=== PATIENT | female | born 1995 | race Caucasian/White ===

== ENCOUNTER 2016-12-10 09:05 | Emergency (ER) | payer OTHER ==
[~2016-12-10] VITALS: Ht 170.2 cm; Wt 48.2 kg
[~2016-12-10 09:05] MED LIST: ONDA4TAB12 PO; ONDA4TAB9 PO; OXYC5SOL11 PO; PREN1TAB73 PO; PROC25SU30 RC
[2016-12-10 09:20] VITALS: BP 155/107; PULSE 114; RESP 16; O2SAT 99
--- NOTE | 2016-12-10 11:20 | ED.REPORT ---
HPI-URI / Cough / Cold Date of Service Dec 10, 2016 ED Provider: Ganesh Benavides PA-C Marisol is a 21-year-old female with a history of SMA syndrome who presents with a chief complaint of cough. Patient reports a one-month history of cough and sore throat. She states that the cough was initially productive but is now dry. Additionally complains of dyspnea, wheezing, anorexia, fatigue, chills, sweats, nausea and 2 episodes of vomiting. Patient reports burning epigastric abdominal pain that is familiar to her and at baseline. Denies fever, diarrhea , substernal chest pain, palpitations. Admits a history of spontaneous pneumothorax with surgery 5 months ago. Patient has a secondary complaint of lower back pain. She reports a history of fractured 3 vertebra approximately 13 months ago. She localizes pain to her lumbosacral region. Denies weakness, numbness/tingling, pain in extremities. Denies fever, recent infection, recent surgery in the last 3 months, back surgery or implant, DM, immunosuppression, IV drug use. Also denies bowel/ bladder dysfunction, saddle anesthesia. Nursing Notes Stated Complaint: SICK/BACK PAIN Chief Complaint: Back Pain or Injury Nursing Notes Reviewed: Yes Allergies: Coded Allergies: metoclopramide (Verified Allergy, Severe, 07/09/14) haloperidol (Verified Allergy, Unknown, 10/26/16) Scheduled Vit/Iron Fumarate/FA ( Vitamin Tablet) 1 Each Tablet 1 EACH PO DAILY Scheduled PRN Ondansetron ODT (Ondansetron ODT) 4 Mg Tab.rapdis 4 MG PO Q4 PRN PRN For Nausea/ Vomiting Ondansetron ODT (Zofran ODT) 4 Mg Tablet 4 MG PO Q4H PRN PRN For Nausea Prochlorperazine Maleate (Compazine Suppository) 25 Mg Supp.rect 25 MG RC Q8 PRN PRN For Nausea/Vomiting oxyCODONE (oxyCODONE) 5 Mg/5 Ml Solution 5 MG PO QID PRN PRN For Pain General Time Seen by MD: 11:00 Chief Complaint Cough, non-productive Past Medical History Past Medical History SMA syndrome, initially diagnosed in [facility] at [facility], age 14 Spontaneous pneumothorax Anxiety, depression Past Surgical History laparoscopic duodenojejunostomy Smoking History Former Smoker Social History Alcohol Use: Denies alcohol use Drug Use: THC Ambulatory Status Independent Review of Systems General: Admits chills, malaise, fatigue. Denies fever HEENT: Admits sore throat. Denies congestion, headache. Respiratory: Admits dyspnea, cough, shortness of breath, wheezing. Cardiovascular: Denies substernal chest pain, palpitations. Gastrointestinal: Admits nausea, vomiting, abdominal pain. Denies diarrhea Genitourinary: Denies frequency, urgency, dysuria, hematuria. Otherwise as noted in HPI. Complete sys rev & neg: except as marked. Physical Exam General: Well developed, very thin, no acute distress. Head: Atraumatic, normocephalic. No mastoid tenderness. Eyes: No scleral icterus or injection. No discharge. Vision grossly intact. Ears: Pinna and tragus nontender with manipulation. External auditory canal patent, atraumatic and without discharge. Tympanic membrane casillas, shiny and translucent without fluid, bulging, retraction or perforation. Hearing grossly intact. Nose: Symmetrical, nares patent without discharge. No frontal or maxillary sinus tenderness. Mouth/pharynx: Normal dentition, mucus membranes moist. Tonsils small casillas exudate, 2+ and symmetrical, uvula midline. Pharynx injected. Voice clear. No pooling secretions. Neck: Bilateral mildly tender lymphadenopathy. Trachea midline. Respiratory: Clinically evident cough. Regular rate and rhythm. Breath sounds present, clear to auscultation and equal bilaterally. Cardiovascular: Regular rate and rhythm, without murmur, gallop or rub. No pedal edema. Gastrointestinal: Abdomen flat and non-tender without guarding or rebound. Bowel sounds normoactive. Skin: Warm and dry. Back: Slight swelling over sacrum without redness or heat. Mild tenderness over sacrum and SI joints. Neurological: Grossly nonfocal. Psychological: alert and oriented. Speech appropriate, linear and logical. Behavior appropriate. Initial Vital Signs Vital Signs (First) Date Time Temp Pulse Resp B/P Pulse Ox O2 Delivery O2 Flow Rate FiO2 12/10/16 09:20 36.2 114 16 155/107 99 Room Air Initial VS: Reviewed Interpretation & Diagnostics Lab Results Interpretation Result Diagram: 12/10/16 1235 12/10/16 1235 Test 12/10/16 12:25 12/10/16 12:35 Hold Urine Received (Received) White Blood Count 15.7th/mm3 (3.8-10.1) Red Blood Count 4.70mil/mm3 (3.90-5.20) Hemoglobin 13.6g/dL (12.0-15.6) Hematocrit 40.3% (35.0-46.0) Mean Corpuscular Volume 85.7fL (81-100) Mean Corpuscular Hemoglobin 28.9pg (27.0-35.0) Mean Corpuscular Hemoglobin Concent 33.7% (32.0-37.0) Red Cell Distribution Width 13.7% (12.3-15.4) Platelet Count 206bil/L (150-400) Neutrophils (%) (Auto) 77.8% (40-74) Lymphocytes (%) (Auto) 10.5% (14-46) Monocytes (%) (Auto) 10.3% (4-12) Eosinophils (%) (Auto) 0.9% (0-5) Basophils (%) (Auto) 0.2% (0-3) Sodium Level 137mEq/L (134-144) Potassium Level 3.4mEq/L (3.5-5.2) Chloride Level 98mEq/L (97-108) Carbon Dioxide Level 23mmol/L (18-29) Blood Urea Nitrogen 6mg/dL (6-20) Creatinine 0.41mg/dL (0.57-1.00) Estimat Glomerular Filtration Rate 278mL/min (>59) Glucose Level 94mg/dL (60-99) Calcium Level 9.1mg/dL (8.5-10.1) Total Bilirubin 0.6mg/dL (0.0-1.2) Aspartate Amino Transf (AST/SGOT) 12U/L (0-50) Alanine Aminotransferase (ALT/SGPT) 11U/L (0-32) Alkaline Phosphatase 74U/L (25-150) Total Protein 7.3g/dL (6.4-8.4) Albumin 4.0g/dL (3.4-5.0) Hold Jain Top Tube Received (Received) Monoscreen Negative (Negative) X-Ray Chest Interpretation Chest Xray Interpretation: PROCEDURE: X-RAY CHEST, TWO VIEWS ([id number]) INDICATIONS: cough IMPRESSION: No acute disease Interpretation / Wet Read by: Interpret - Radiologist, Interp - AHP Re-Eval/Medical Decision Med Decision/Clinical Course Discussed this case with Dr. Jarvis. Patient's 19 oh female with a history of SMA and lumbar fractures presents with chief complaint one month history of cough and sore throat. Admits fatigue. Denies fever. Physical exam reveals slight casillas tonsillar exudate, anterior lymphadenopathy. Monospot negative. CBC reveals leukocytosis. Chest x-ray normal. I believe this is a viral upper respiratory infection versus pneumonia , strep throat, tuberculosis. She has a secondary complaint of lumbosacral back pain that began about 2 days ago. She said when she woke up in the morning. For severe event. No red flag symptoms for epidural abscess or cauda equina syndrome. This is more likely to be musculoskeletal. Initial tachycardia resolved. 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 History, physical, x-rays are all quite reassuring that you do not have pneumonia. They are also reassuring that the pain that is unlikely to be caused by something dangerous such as infection or swelling in your spinal cord. The mono test was negative. I believe it is safe to discharge you to home. The pain is best treated with 400 mg of ibuprofen (Advil, Motrin) every 6 hours, or 1000 mg of acetaminophen (Tylenol) every 6 hours. These drugs can be taken at the same time for more severe pain. Rest, use your Zofran for the nausea and tried to eat and drink small amounts throughout the day. I provided a referral for primary care follow-up. Please contact them to arrange follow-up if your symptoms do not resolve in the next week. Return to the emergency department for any new or worsening symptoms including bowel/bladder dysfunction, numbness between your legs, difficulty breathing or shortness of breath. Referrals: [facility] EDSupervising Provider for APC: Yogesh Jarvis MD,Ganesh CARVAJAL Dec 10, 2016 11:20
--- NOTE | 2016-12-10 11:40 | DRSVH ---
PROCEDURE: X-RAY CHEST, TWO VIEWS ([id number]) INDICATIONS: cough TECHNIQUE: 2 views of the chest were acquired. COMPARISON: [facility], CR, XR CHEST 1VW (PORTABLE), 10/26/2016, 11:57. FINDINGS: Surgical changes and devices: None. Lungs and pleura: No pleural effusions or pneumothorax. Lungs are clear. Mediastinum: Mediastinal contours are normal. Heart size is normal. Bones and chest wall: No suspicious bony abnormalities. Soft tissues appear unremarkable. IMPRESSION: No acute disease Dictated by: Mich Burton M.D. on 12/10/2016 at 11:38 Approved by: Mich Burton M.D. on 12/10/2016 at 11:38
[2016-12-10 12:43] LABS: BASOPHILS % (AUTO) 0.2 % (0-3); EOSINOPHILS % (AUTO) 0.9 % (0-5); MONOCYTES % (AUTO) 10.3 % (4-12); Mean Corpuscular Hemoglobin 28.9 pg (27.0-35.0); Mean Corpuscular Volume 85.7 fL (81-100); NEUTROPHILS % (AUTO) 77.8 % (40-74); Platelet Count 206 bil/L (150-400)
[2016-12-10 13:54] VITALS: BP 158/113; PULSE 110; RESP 18; O2SAT 94
== END 2016-12-10 13:56 ==
LOC: SED 09:05
DX: R05 Cough (principal); M54.5 Low back pain; R06.00 Dyspnea, unspecified; R63.0 Anorexia; R53.83 Other fatigue; R68.83 Chills (without fever); R61 Generalized hyperhidrosis; R11.2 Nausea with vomiting, unspecified; R10.13 Epigastric pain; Z87.891 Personal history of nicotine dependence; Z88.8 Allergy status to other drugs, medicaments and biological substances

== ENCOUNTER 2017-01-23 15:08 | Emergency (ER) | payer OTHER ==
[~2017-01-23] VITALS: Ht 170.2 cm; Wt 48.6 kg
[2017-01-23 15:21] VITALS: BP 138/96; PULSE 70; RESP 24; O2SAT 99
== END 2017-01-23 15:40 | disposition left against medical advice (07) ==
LOC: SED 15:08
DX: R10.9 Unspecified abdominal pain (principal); Z53.21 Procedure and treatment not carried out due to patient leaving prior to being seen by health care provider

== ENCOUNTER 2017-01-23 19:42 | Emergency (ER) | payer OTHER ==
[2017-01-23 19:59] VITALS: BP 144/98; PULSE 55; O2SAT 100
--- NOTE | 2017-01-23 20:16 | ED.REPORT ---
HPI-Abd Pain F Under 40 Date of Service Jan 23, 2017 ED Provider: Pillo Lee Patient is a 21 year old female who presents to the ED complaining of upper abdominal pain onset 1400 this afternoon. Associated symptoms include nausea, vomiting, fever, chills, and diarrhea. She denies headache, lightheadedness, or any other symptoms. She reports that her symptoms are the same as her previous flare-ups. She smokes THC daily. Patient came to the department earlier this afternoon but left without being seen. Nursing Notes Stated Complaint: VOMITING Chief Complaint: Female Abdominal Pain Nursing Notes Reviewed: Yes Allergies: Coded Allergies: metoclopramide (Verified Allergy, Severe, 07/09/14) haloperidol (Verified Allergy, Unknown, 10/26/16) Scheduled Vit/Iron Fumarate/FA ( Vitamin Tablet) 1 Each Tablet 1 EACH PO DAILY Scheduled PRN Ondansetron ODT (Ondansetron ODT) 4 Mg Tab.rapdis 4 MG PO Q4 PRN PRN For Nausea/ Vomiting Ondansetron ODT (Zofran ODT) 4 Mg Tablet 4 MG PO Q4H PRN PRN For Nausea Prochlorperazine Maleate (Compazine Suppository) 25 Mg Supp.rect 25 MG RC Q8 PRN PRN For Nausea/Vomiting oxyCODONE (oxyCODONE) 5 Mg/5 Ml Solution 5 MG PO QID PRN PRN For Pain General Time Seen by MD: 20:16 Chief Complaint Abdominal pain Hx Obtained From: Patient Arrived By: Walk-in Sudden in Onset?: Yes Onset Occurred: 5 - 8 hours ago Symptom Duration: Since onset Similar Sx Previous: Yes Past Medical History Past Medical History SMA syndrome, initially diagnosed in [facility] at [facility], age 14 Spontaneous pneumothorax Anxiety, depression Past Surgical History laparoscopic duodenojejunostomy Lung surgery Smoking History Former Smoker Social History THC use daily Alcohol Use: Denies alcohol use Drug Use: THC Ambulatory Status Independent Review of Systems Constitutional: Reports: Chills, Fever GI: Reports: Abdominal pain, Diarrhea, Nausea, Vomiting Complete sys rev & neg: except as marked. Neurologic: Denies: Headache, Lightheaded Physical Exam Initial Vital Signs Vital Signs (First) Date Time Temp Pulse Resp B/P Pulse Ox O2 Delivery O2 Flow Rate FiO2 01/23/17 19:59 36.1 55 144/98 100 Room Air 01/23/17 23:36 16 Head / Eyes: Atraumatic, Normocephalic Skin: Warm, Dry Neurologic: Alert, Oriented, Nonfocal Psychiatric: Mood/affect normal, Behavior normal, Normal thought content General/Constitutional: Awake, Alert, Well developed Distress / Hydration: Positive: Distress mild Respiratory / Chest: No respiratory distress Cardiovascular: Heart rate NL, Regular rhythm Abdomen: Soft Tenderness/Guarding/Rebound: Positive: Tender LUQ..., Tender RUQ... Back: Inspection NL Interpretation & Diagnostics Lab Results Interpretation Result Diagram: 01/23/17203601/23/172036 Test 01/23/17 20:37 White Blood Count 16.4th/mm3 (3.8-10.1) Red Blood Count 4.88mil/mm3 (3.90-5.20) Hemoglobin 14.4g/dL (12.0-15.6) Hematocrit 41.5% (35.0-46.0) Mean Corpuscular Volume 85.0fL (81-100) Mean Corpuscular Hemoglobin 29.5pg (27.0-35.0) Mean Corpuscular Hemoglobin Concent 34.7% (32.0-37.0) Red Cell Distribution Width 13.5% (12.3-15.4) Platelet Count 248bil/L (150-400) Neutrophils (%) (Auto) 90.2% (40-74) Lymphocytes (%) (Auto) 5.6% (14-46) Monocytes (%) (Auto) 3.9% (4-12) Eosinophils (%) (Auto) 0% (0-5) Basophils (%) (Auto) 0.1% (0-3) Sodium Level 134mEq/L (134-144) Potassium Level 3.8mEq/L (3.5-5.2) Chloride Level 94mEq/L (97-108) Carbon Dioxide Level 19mmol/L (18-29) Blood Urea Nitrogen 10mg/dL (6-20) Creatinine 0.65mg/dL (0.57-1.00) Estimat Glomerular Filtration Rate 163mL/min (>59) Glucose Level 146mg/dL (60-99) Calcium Level 9.8mg/dL (8.5-10.1) Magnesium Level 1.7mg/dL (1.6-2.6) Total Bilirubin 0.7mg/dL (0.0-1.2) Aspartate Amino Transf (AST/SGOT) 25U/L (0-50) Alanine Aminotransferase (ALT/SGPT) 23U/L (0-32) Alkaline Phosphatase 66U/L (25-150) Total Protein 8.2g/dL (6.4-8.4) Albumin 4.9g/dL (3.4-5.0) Lipase 48U/L (13-60) Hold Jain Top Tube Received (Received) Re-Eval/Medical Decision Med Decision/Clinical Course Med Decision/Clinical Course: Known recurrent abdominal pain and vomiting, states this is similar to prior episodes declines advanced imaging. Pain resolved tolerating orals will be discharged. Re-Evaluation/Progress : Time of Eval: 21:55 Re-Evaluation/Progress Note: Rechecked patient. PO challenge completed. Discussed plan for discharge. Patient understands and agrees with plan. All questions addressed at this time. Counseled Regarding: Diagnosis, Need for follow-up, When/why to return to ED Discharge & Departure Primary Impression: Vomiting Disposition: Home Discharge Condition All VS Reviewed: Yes Condition: Improved Patient Instructions: Acute Nausea and Vomiting (ED) Additional Instructions: Thank you for entrusting us with your care. Take your Zofran as prescribed and follow up with your primary care physician if your nausea persists. Drink clear fluids and advance your diet as tolerated. Return to the emergency department if you develop new or worsening symptoms. Referrals: NOPCP (PCP) [facility] Scribe Attestation Portions of this note were transcribed by Luis Caputo. I, Dr. Lee personally performed the history, physical exam and medical decision-making; I reviewed and confirmed the accuracy of the information in the transcribed note. Signed by: Luis Caputo 01/23/2017, [id number] copies to: [facility] Pillo Lee DO Jan 23, 2017 20:16 LUIS CAPUTO Jan 23, 2017 20:36
[2017-01-23] MEDS ORDERED: 0.9% Sodium Chloride 1,000 ML IV ONE ×2 (20:30)
[2017-01-23] MEDS: HYDROmorphone 1 mg/mL Inj IVPUSH PRN ×2 (20:40→21:09)
[2017-01-23] MEDS: Ondansetron 2 mg/mL 2 mL Inj IVPUSH PRN ×2 (20:40→21:10)
[2017-01-23 20:57] LABS: BASOPHILS % (AUTO) 0.1 % (0-3); EOSINOPHILS % (AUTO) 0 % (0-5); MONOCYTES % (AUTO) 3.9 % (4-12); Mean Corpuscular Hemoglobin 29.5 pg (27.0-35.0); NEUTROPHILS % (AUTO) 90.2 % (40-74); Platelet Count 248 bil/L (150-400)
[2017-01-23 21:06] LABS: Magnesium 1.7 mg/dL (1.6-2.6)
[2017-01-23 23:36] VITALS: BP 130/76; PULSE 100; RESP 16; O2SAT 100
== END 2017-01-23 23:37 | disposition home or self-care (01) ==
LOC: SED 19:42
DX: R11.10 Vomiting, unspecified (principal); R10.11 Right upper quadrant pain; R10.12 Left upper quadrant pain; R50.9 Fever, unspecified; R19.7 Diarrhea, unspecified; Z87.891 Personal history of nicotine dependence; Z88.8 Allergy status to other drugs, medicaments and biological substances
CPT/HCPCS: 36415; 80053; 83690; 83735; 85025; 96361; 96374; 96375; 99285; G0463; J1170; J2405; J7030

== ENCOUNTER 2017-02-06 05:01 | Emergency (ER) | payer OTHER ==
[~2017-02-06] VITALS: Ht 175.3 cm; Wt 45.5 kg
[2017-02-06 05:04] VITALS: BP 183/121; PULSE 94; RESP 26; O2SAT 98
[2017-02-06] MEDS ORDERED: Ondansetron 2 mg/mL 2 mL Inj IVPUSH PRN (05:25)
[2017-02-06] MEDS ORDERED: 0.9% Sodium Chloride 1,000 ML IV ONE (05:25)
--- NOTE | 2017-02-06 05:25 | ED.REPORT ---
HPI-NVD Date of Service Feb 06, 2017 ED Provider: Garcia Long MD Patient is a 21 year old female with a history of SMA syndrome s/p laparoscopic duodenojejunostomy, spontaneous pneumothorax, and daily marijuana use presents to the ED complaining of severe abdominal pain that began at 3am this morning. She describes severe pain her upper abdomen, reporting that this area feels hard to touch. She reports associated nausea and vomiting. Patient states that her symptoms are what she experiences whenever she has a flare related to her SMA. Patient states that she has less frequent SMA flares since she had her laparoscopic duodenojejunostomy. The patient has Zofran at home for her symptoms. Patient states that uses marijuana daily under the advice of her PCP, as it stimulates her appetite. Patient is aware of cannabis hyperemesis syndrome. Nursing Notes Stated Complaint: SMA SYNDROME Chief Complaint: Female Abdominal Pain Nursing Notes Reviewed: Yes Allergies: Coded Allergies: metoclopramide (Verified Allergy, Severe, 07/09/14) haloperidol (Verified Allergy, Unknown, 10/26/16) Scheduled Vit/Iron Fumarate/FA ( Vitamin Tablet) 1 Each Tablet 1 EACH PO DAILY Scheduled PRN Ondansetron ODT (Ondansetron ODT) 4 Mg Tab.rapdis 4 MG PO Q4 PRN PRN For Nausea/ Vomiting Ondansetron ODT (Zofran ODT) 4 Mg Tablet 4 MG PO Q4H PRN PRN For Nausea Prochlorperazine Maleate (Compazine Suppository) 25 Mg Supp.rect 25 MG RC Q8 PRN PRN For Nausea/Vomiting oxyCODONE (oxyCODONE) 5 Mg/5 Ml Solution 5 MG PO QID PRN PRN For Pain General Time Seen by MD: 05:23 Chief Complaint Nausea, Vomiting, Abd pain, constant Hx Obtained From: Patient Arrived By: Walk-in Onset Occurred: 1 - 4 hours ago Symptom Duration: Since onset Location: : Abdomen upper Quality: Painful Severity: Current: Severe Severity: Maximum: Severe Recent Healthcare: No recent doctor visit, No recent hospitalization Similar Sx Previous: Yes Past Medical History Past Medical History SMA syndrome, initially diagnosed in [facility] at [facility], age 14 Spontaneous pneumothorax Anxiety, depression Past Surgical History laparoscopic duodenojejunostomy Lung surgery Smoking History Former Smoker Social History THC use daily Alcohol Use: Denies alcohol use Drug Use: THC Other Social History: Local resident Ambulatory Status Independent Review of Systems Constitutional: Denies: Chills, Fever GI: Reports: Abdominal pain, Nausea, Vomiting Complete sys rev & neg: except as marked. Physical Exam Initial Vital Signs Vital Signs (First) Date Time Temp Pulse Resp B/P Pulse Ox O2 Delivery O2 Flow Rate FiO2 02/06/17 05:04 36.1 94 26 183/121 98 Room Air Initial VS: Reviewed, Vital signs abnormal Head / Eyes: Atraumatic, Normocephalic, PERRL ENT: Conjunctiva normal, No scleral icterus Neck: Supple, Full range of motion Extremities: Vascular intact, Neuro intact, No swelling Skin: Warm, Dry, No cyanosis Neurologic: Alert, Oriented, Nonfocal General/Constitutional: Awake, Alert Distress / Hydration: Positive: Distress moderate, Distress severe Appearance / Presentation: Positive: Uncomfortable crying out in pain Abdomen: No distention Tenderness/Guarding/Rebound: Positive: Tender RUQ... (tender with guarding) Respiratory / Chest: No respiratory distress Cardiovascular: Heart rate NL Interpretation & Diagnostics Lab Results Interpretation Test 02/06/17 05:30 Re-Eval/Medical Decision Med Decision/Clinical Course 21-year-old female presents with recurrent nausea vomiting and abdominal pain. She has SMA syndrome. She also smokes marijuana on a daily basis. IV was started and she was given normal saline, Zofran, and Dilaudid. Care will be turned over change shift to the oncoming physician. Source of Hx: Old records Discharge & Departure Shift Change Sign-Out Patient Care Transferred: Yes Discussed Complaint(s): Yes Laboratory Evaluation: Ordered, not yet done Impression: Primary Impression: Abdominal pain Abdominal location: upper abdomen Qualified Code: R10.10 - Upper abdominal pain, unspecified Additional Impressions: Nausea & vomiting Vomiting type: unspecified Vomiting Intractability: non-intractable Qualified Code: R11.2 - Nausea with vomiting, unspecified Superior mesenteric artery syndrome Care Transferred to: Dr. Garnett Care Transferred at: 06:00 Sd Attestation Portions of this note were transcribed by Eliana Hooks. I, Dr. Long personally performed the history, physical exam and medical decision-making; I reviewed and confirmed the accuracy of the information in the transcribed note. Signed by: dS Naranjo, 02/06/2017 0548 Garcia Long MD Feb 06, 2017 05:25 Eliana Hooks Feb 06, 2017 05:34
[2017-02-06] MEDS: HYDROmorphone 0.5 mg/0.5 mL iSecure Syringe IVPUSH PRN ×2 (05:43→06:19)
[2017-02-06 05:52] LABS: BASOPHILS % (AUTO) 0.2 % (0-3); EOSINOPHILS % (AUTO) 3.3 % (0-5); MONOCYTES % (AUTO) 9.1 % (4-12); Mean Corpuscular Hemoglobin 29.1 pg (27.0-35.0); Mean Corpuscular Volume 84.1 fL (81-100); NEUTROPHILS % (AUTO) 68.9 % (40-74); Platelet Count 247 bil/L (150-400)
[2017-02-06 06:11] LABS: Magnesium 1.7 mg/dL (1.6-2.6)
[2017-02-06] MEDS ORDERED: Promethazine Inj 25 MG in Dextrose 5%-Pha MIX 50 ML IV ONE (07:10)
[2017-02-06] MEDS ORDERED: HYDROmorphone 1 mg/mL Inj IVPUSH ONE (07:10)
[2017-02-06] MEDS ORDERED: OXYC1TAB24 PO (08:17)
[2017-02-06] MEDS ORDERED: DICY10CA56 PO (08:17)
[2017-02-06] MEDS ORDERED: PROM25TA14 PO (08:17)
[2017-02-06 08:48] VITALS: BP 111/89; PULSE 96; RESP 14; O2SAT 98
[2017-02-06 09:21] VITALS: BP 111/89; PULSE 96; RESP 14; O2SAT 98
== END 2017-02-06 09:24 | disposition home or self-care (01) ==
LOC: SED 05:01
DX: R10.10 Upper abdominal pain, unspecified (principal); R11.2 Nausea with vomiting, unspecified; K55.1 Chronic vascular disorders of intestine; F12.90 Cannabis use, unspecified, uncomplicated; Z87.891 Personal history of nicotine dependence; Z88.8 Allergy status to other drugs, medicaments and biological substances
CPT/HCPCS: 36415; 80053; 81002; 81025; 83690; 83735; 85025; 96361; 96374; 96375; 96376; 99284; J1170; J1200; J2405; J2550; J7030